=== PATIENT | female | born 1940 | race Caucasian/White ===

== ENCOUNTER 2021-08-05 18:21 | Inpatient (IN) | payer MEDICARE, OTHER ==
[~2021-08-05] VITALS: Ht 152.4 cm; Wt 65.2 kg
[2021-08-05 19:13] LABS: BASOPHILS ABSOLUTE AUTO 0.09 K/mm3 (0.00-0.23); BASOPHILS PERCENT AUTO 1 % (0-2); EOSINOPHILS ABSOLUTE AUTO 0.15 K/mm3 (0.00-0.68); EOSINOPHILS PERCENT AUTO 1 % (0-6); Hematocrit 31.5 % (33.0-51.0); Hemoglobin 10.9 g/dL (11.5-16.0); IMMATURE GRAN PERCENT AUTO 1 % (0-1); LYMPHOCYTES ABSOLUTE AUTO 1.66 K/mm3 (0.84-5.20); LYMPHOCYTES PERCENT AUTO 12 % (21-46); MONOCYTES ABSOLUTE AUTO 0.94 K/mm3 (0.16-1.47); MONOCYTES PERCENT AUTO 7 % (4-13); Mean Corpuscular HGB 31.6 pg (26.0-34.0); Mean Corpuscular HGB Conc 34.6 g/dL (31.5-36.5); Mean Corpuscular Volume 91 fL (80-100); Mean Platelet Volume 10.5 fL (9.1-12.4); NEUTROPHILS ABSOLUTE AUTO 11.37 K/mm3 (1.96-9.15); NEUTROPHILS PERCENT AUTO 80 % (41-73); Platelet Count 326 K/mm3 (150-400); RDW Coefficient Variation 13.9 % (11.7-14.2); RDW Standard Deviation 46.5 fL (35.1-46.3); Red Blood Cell Count 3.45 M/mm3 (3.80-5.20); White Blood Cell Count 14.31 K/mm3 (4.00-11.30)
[2021-08-05 19:43] LABS: Influenza A, PCR NEGATIVE (NEGATIVE); Influenza B, PCR NEGATIVE (NEGATIVE); Resp Syncytial Virus, PCR NEGATIVE (NEGATIVE); SARS-Cov-2 (COVID-19) PCR, MMC NEGATIVE (NEGATIVE)
[2021-08-05 19:55] LABS: Albumin, Blood 2.6 g/dL (3.4-5.0); Albumin/Globulin Ratio 0.6 (0.8-1.8); Bilirubin, Total 0.6 mg/dL (0.1-1.0); Bun/Creatinine Ratio 6.6 (12.0-20.0); Calcium, Blood 8.9 mg/dL (8.5-10.1); Creatinine, Blood 7.93 mg/dL (0.40-1.00); Globulin, Blood 4.1 g/dL (2.2-4.0); Total Protein, Blood 6.7 g/dL (6.4-8.2)
[2021-08-05 20:01] LABS: Magnesium, Blood 1.4 mg/dL (1.6-2.4); Phosphorus, Blood 5.6 mg/dL (2.5-4.9); Troponin I 0.092 ng/mL (0.000-0.040)
[2021-08-05] MEDS ORDERED: XARELTO20 MG PO (21:24)
[2021-08-05 23:23] LABS: Bun/Creatinine Ratio 6.8 (12.0-20.0); Calcium, Blood 8.5 mg/dL (8.5-10.1); Creatinine, Blood 8.23 mg/dL (0.40-1.00)
[2021-08-06 01:17] LABS: Automated BF WBC Count 0.118 K/mm3 (0-999); Body Fluid WBC Count 118 /mm3 (0-999)
--- NOTE | 2021-08-06 01:22 | NUR ---
DIALYSIS-PD DAUGHTER IN THE ROOM WITH PT. THEY ARE NEW TO PD. HAS A FISTULA THAT HASN'T WORKED WELL. USED A PERMACATH WHILE ON HD. CATH WAS DC'ED WHEN STARTED PD. APPROXIMATELY 3 MOS AGO. TOOK SAMPLE PER PROTOCAL FOR CELL CT AND GRAM STAIN. CULTURE IF NEEDED, THE SAMPLE WAS EXTREMELY SMALL AMT, CLEAR LOOKING. THE CIGAR BINDER FELT MAY BE ABLE TO GET RESULTS. PT IS ABSORBING THE LAST FILL BUT THE PD RN (CHRIS) FEELS SHE MAY NEED THE FLUID. SHE USES 1.5% DEXTROSE DIANEAL X 2. DAUGHTER SAYS SHE IS NOT A BIG EATER. WAITING RESULTS OF CELL CT.
[2021-08-06 02:56] LABS: RBC Count, Body Fluid 42 /mm3 (0-0)
--- NOTE | 2021-08-06 03:35 | NUR ---
DIALYSIS-PD REPORTED WBC OF PD FLUID TO DR CASTILLO. HE DECIDED TO WAIT TIL AM WHEN HE MAKE ROUNDS. INFORMED PT' DAUGHTER AND HER NURSE OF PLANS TO WAIT. PT HAS NO PAIN OR DISCOMFORT IN ABD AREA. I PALPATED AROUND HER PD PORT WITH OUT ANY DISCOMFORT. I COULD FEEL A THRILL AT HER FISTULA SITE.
[2021-08-06 03:57] LABS: Appearance, Body Fluid Hazy (Clear); Color, Body Fluid L Yellow (None-Yellow); Total Cell Count, Body Fluid 42
--- NOTE | 2021-08-06 05:21 | NUR ---
SHIFT SUMMARY PT RECEIVED FROM ER, AWAKE AND ALERT TO HERSELF ALONG WITH DAUGHTER. PT WAS ADMITTED FOR HYPOKALEMIA . PT ON ROOM AIR, NO SOB . ABX , POTASSIUM AND AND MAGNESIUM WERE STARTED IN THE ER. PT IS ON PERITONEAL DYALYSIS AT HOME FOR THE PAST THREE MONTHS. RIGHT FISTULA ON RIGHT ARM AND PD CATHETER FOR PERITONEAL DYALYSIS ON ABDOMEN ERE NOTED.DR MENDOZA WAS CONSULTED AND DYALISIS NURSE FROM [facility] CAME TO COLLECT FLUID TO SEND TO LAB.PD WAS ON HOLD FOR LAST NIGHT UNTIL RESULTS ARE BACK.BP WAS ON LOW SIDE ,MD WAS NOTIFIED AND NS BOLUS WAS ORDERED AND GIVEN. PT IS SLEEPING COMFORTABLY AT THIS TIME WITH DAUGHTER AT BEDSIDE. BED IN LOWER POSITION AND CALL LIGHT IN EASY REACH. WILL CONTINUE TO MONITOR UNTIL DAY SHIFT ARRIVES.
[2021-08-06 08:30] LABS: BASOPHILS ABSOLUTE AUTO 0.09 K/mm3 (0.00-0.23); BASOPHILS PERCENT AUTO 1 % (0-2); EOSINOPHILS ABSOLUTE AUTO 0.26 K/mm3 (0.00-0.68); EOSINOPHILS PERCENT AUTO 2 % (0-6); IMMATURE GRAN ABSOLUTE AUTO 0.05 K/mm3 (0.00-0.10); IMMATURE GRAN PERCENT AUTO 0 % (0-1); LYMPHOCYTES ABSOLUTE AUTO 1.56 K/mm3 (0.84-5.20); LYMPHOCYTES PERCENT AUTO 13 % (21-46); MONOCYTES ABSOLUTE AUTO 0.86 K/mm3 (0.16-1.47); MONOCYTES PERCENT AUTO 7 % (4-13); Mean Corpuscular HGB 31.5 pg (26.0-34.0); Mean Corpuscular HGB Conc 34.6 g/dL (31.5-36.5); Mean Corpuscular Volume 91 fL (80-100); Mean Platelet Volume 10.5 fL (9.1-12.4); NEUTROPHILS ABSOLUTE AUTO 9.54 K/mm3 (1.96-9.15); NEUTROPHILS PERCENT AUTO 77 % (41-73); Platelet Count 229 K/mm3 (150-400); RDW Coefficient Variation 13.8 % (11.7-14.2); RDW Standard Deviation 46.3 fL (35.1-46.3); Red Blood Cell Count 2.86 M/mm3 (3.80-5.20); White Blood Cell Count 12.36 K/mm3 (4.00-11.30)
[2021-08-06 08:58] LABS: Albumin, Blood 1.9 g/dL (3.4-5.0); Anion Gap 11 mmol/L (6-16); Blood Urea Nitrogen 57 mg/dL (8-24); Bun/Creatinine Ratio 7.2 (12.0-20.0); CO2, Blood 20 mmol/L (21-32); Calcium, Blood 7.9 mg/dL (8.5-10.1); Chloride, Blood 104 mmol/L (98-108); Creatinine, Blood 7.91 mg/dL (0.40-1.00); Glomerular Filtration Rate 5 (60-); Glucose, Blood 104 mg/dL (70-99); Phosphorus, Blood 4.8 mg/dL (2.5-4.9); Potassium, Blood 3.2 mmol/L (3.5-5.5); Sodium, Blood 135 mmol/L (136-145)
[2021-08-06 11:37] LABS: Troponin I 0.136 ng/mL (0.000-0.040); Vancomycin, Random 12.9 ug/mL
[2021-08-06] MEDS ORDERED: Potassium Chlo20 ME1 PO (16:18)
[2021-08-06] MEDS ORDERED: MIDO5 PO (16:19)
[2021-08-06] MEDS ORDERED: MEGESTROL400 MG/11 PO (16:19)
[2021-08-06] MEDS ORDERED: CLON.5 PO (16:20)
[2021-08-06] MEDS ORDERED: GABA300 PO (16:21)
[2021-08-06] MEDS ORDERED: XARELTO20 MG PO (16:21)
[2021-08-06] MEDS ORDERED: OXYC5 PO (16:22)
[2021-08-06 18:05] LABS: Adenovirus F 40/41 Not Detected (NOT DETECT); Astrovirus Not Detected (NOT DETECT); Campylobacter Sp Not Detected (NOT DETECT); Cryptosporidium Not Detected (NOT DETECT); Cyclospora Cayetanensis Not Detected (NOT DETECT); E. Coli O157 Not Detected (NOT DETECT); Entamoeba Histolytica Not Detected (NOT DETECT); Enteroaggregative E. coli-EAEC Not Detected (NOT DETECT); Enteropathogenic E. coli-EPEC Not Detected (NOT DETECT); Enterotoxigenic E. coli-ETEC Not Detected (NOT DETECT); Giardia Lamblia Not Detected (NOT DETECT); Norovirus GI/GII Not Detected (NOT DETECT); Plesiomonas Shigelloides Not Detected (NOT DETECT); Rotavirus A Not Detected (NOT DETECT); Salmonella Sp Not Detected (NOT DETECT); Sapovirus Not Detected (NOT DETECT); Shiga Toxin-prod E. coli-STEC Not Detected (NOT DETECT); Shigella/Enteroin E. coli-EIEC Not Detected (NOT DETECT); Vibrio Cholerae Not Detected (NOT DETECT); Vibrio Sp Not Detected (NOT DETECT); Yersinia Enterocolitica Not Detected (NOT DETECT)
--- NOTE | 2021-08-06 19:29 | NUR ---
SUMMARY- PT ALERT TO SELF AND PLACE, NOT AWARE OF THE DATE OF SPECIFICS. DEPENDANT IN CARE, ROUTINE TURNS. ANURIC, HAD ONE SMALL LOOSE BM AND SPECIMEN SENT. LAB CALLED AND STATES AMOUNT INSUFFICIENT, BUT RESULTS CAME BACK NEGATIVE ALL IN GI PANAL. BARRIER CREAM TO RED HERRERA. NO APPETITE, ENCOURAGED PO INTAKE. TOOK IN BITES OF RENAL DIET AND SIPS OF FLUIDS. HAD ONE LITER OF NS THROUGH THE DAY. POTASSIUM REPLACEMENT IV. LABS SCHEDULED FOR AM. ALESHIA BLAKE HERE 1800 TO CONNECT PT TO PERITINEAL DIALYSIS THROUGH THE NIGHT. PLAN FOR ECHO. NOT PERFORMED YET. REPORTED ALL TO NOC RN.
--- NOTE | 2021-08-06 19:43 | NUR ---
DIALYSIS-PD PT'S DAUGHTER WANTED TO TRY TO HOOK HER UP TO PD. SHE HAD BEEN TRAINED AT THE CLINIC BUT THE FATHER ALWAYS DID IT. THE FAMILY HAD BROUGHT HER MACHINE WITH THEM WHEN SHE GOT ADMITTED. ALONG SOME SUPPLIES. SHE FEELS THAT SHE NEEDS TO BE PREPARED TO THE PD IF THE FATHER BECOMES ILL OR UNABLE. SO I STOOD BACK AND INSTRUCTED WHILE SHE DID IT. THE PT WAS CONNECTED TO [place] PER PROTOCAL. SHE IS ON 2 1.5% DIANEAL 6 L BAGS. 63416 ML TOTAL. 2000 DWELL, 1000ML LAST FILL. ONE HOUR 33 MIN DWELL TIME. 5 EXCHANGES.
--- NOTE | 2021-08-07 04:27 | NUR ---
SHIFT SUMMARY NO ACUTE EVENTS OVERNIGHT. PT RECEIVED PERITONEAL DIALYSIS . PT TOLERATED WELL. PT SLEPT THROUH THE NIGHT,DAUTHER AT BEDSIDE.VSS STABLE.NO COMPLAINTS OF PAIN OR SOB.ALL MEDS WERE GIVEN PER EMAR. BED IN LOWER POSITION,CALL LIGHT IN REACH. WILL CONTINUE TO MONITOR.
[2021-08-07 05:40] LABS: BASOPHILS ABSOLUTE AUTO 0.06 K/mm3 (0.00-0.23); BASOPHILS PERCENT AUTO 1 % (0-2); EOSINOPHILS ABSOLUTE AUTO 0.52 K/mm3 (0.00-0.68); EOSINOPHILS PERCENT AUTO 5 % (0-6); Hematocrit 26.6 % (33.0-51.0); IMMATURE GRAN ABSOLUTE AUTO 0.04 K/mm3 (0.00-0.10); IMMATURE GRAN PERCENT AUTO 0 % (0-1); LYMPHOCYTES ABSOLUTE AUTO 1.66 K/mm3 (0.84-5.20); LYMPHOCYTES PERCENT AUTO 17 % (21-46); MONOCYTES ABSOLUTE AUTO 0.72 K/mm3 (0.16-1.47); MONOCYTES PERCENT AUTO 8 % (4-13); Mean Corpuscular HGB 31.7 pg (26.0-34.0); Mean Corpuscular HGB Conc 33.8 g/dL (31.5-36.5); Mean Corpuscular Volume 94 fL (80-100); Mean Platelet Volume 10.8 fL (9.1-12.4); NEUTROPHILS ABSOLUTE AUTO 6.57 K/mm3 (1.96-9.15); NEUTROPHILS PERCENT AUTO 69 % (41-73); Platelet Count 258 K/mm3 (150-400); RDW Coefficient Variation 13.9 % (11.7-14.2); RDW Standard Deviation 47.9 fL (35.1-46.3); Red Blood Cell Count 2.84 M/mm3 (3.80-5.20); White Blood Cell Count 9.57 K/mm3 (4.00-11.30)
[2021-08-07 06:51] LABS: Anion Gap 13 mmol/L (6-16); Blood Urea Nitrogen 50 mg/dL (8-24); Bun/Creatinine Ratio 6.8 (12.0-20.0); CO2, Blood 22 mmol/L (21-32); Calcium, Blood 8.6 mg/dL (8.5-10.1); Chloride, Blood 102 mmol/L (98-108); Creatinine, Blood 7.32 mg/dL (0.40-1.00); Glomerular Filtration Rate 5 (60-); Glucose, Blood 119 mg/dL (70-99); Magnesium, Blood 2.1 mg/dL (1.6-2.4); Phosphorus, Blood 3.8 mg/dL (2.5-4.9); Potassium, Blood 3.2 mmol/L (3.5-5.5); Sodium, Blood 137 mmol/L (136-145)
--- NOTE | 2021-08-07 07:42 | NUR ---
PATIENT RESTING COMFORTABLY IN BED. DAUGHTER ( NELLIE ) AT BEDSIDE T/O NIGHT. OVERNIGHT CCPD COMPLETE. PT AESEPTICALLY DISCONNECTED AND CAPPED. CYCLER STRIPPED AND CLEANED. DR CASTILLO CONSULTED VIA PHONE FOR NEW ORDERS/ PLAN OF CARE.
--- NOTE | 2021-08-07 14:57 | NUR ---
TOOK VS. PT STATES IN FRONT OF DAUGHTER THAT KNOWS IF WET OR SOILED. STATES IS CLEAN AND DRY. VERIFIED WITH DAUGHTER PRESENT. AFFIRMED AGAIN WITH ME IS DRY. TURNED PT WITH SOME PILLOW ASST. VISITED FOR MIN ABOUT HER FAMILY. DAUGHTER AT BEDSIDE. BED INLOW POSITION, CALL LITE IN REACH. CALLS APPROP
--- NOTE | 2021-08-07 18:14 | NUR ---
PATIENT AWAKE / ALERT / IN BED EATING DINNER WITH ASSIST OF DAUGHTER. CYCLER STRUNG, PRIMED AND PROGRAMMED PER RX. PATIENT CONNECTED AND TREATMENT STARTED WHEN PRIME COMPLETED. EXIT SITE CARE DONE. NEW STERILE DRESSING APPLIED. MED FLOOR STAFF AWARE OF OVERNIGHT THERAPY IN PROGRESS.
--- NOTE | 2021-08-07 18:17 | NUR ---
SUMMARY- PT ALERT AND ORIENTED TO PLACE AND FAMILY INTERACTIVE WITH STAFF AND APPROPRIATE. DEPENDANT IN CARE, ROUTINE TURNS. FAMILY IN ROOM AT ALL TIMES, ASSIST WITH MEALS. PT DECREASED APPETITE BUT TOLERATING QS FLUIDS. HAD ONE LOOSE SMALL BM, ANURIC. SETTING UP FOR P. DIALYSIS OVERNIGHT. PLANNING FOR SNF AFTER THE WEEKEND. SAT UP AT EDGE OF BED WITH PT TODAY, STOOD AT EDGE OF BED FOR A SHORT TIME. TIRES EASILY. NOT MOTIVATED. FAMILY THINKS SHE WOULD DO BETTER IN A SNF THAN GOING HOME BECAUSE SHE REFUSES TO GET OOB WHEN AT HOME. WILL REOPRT TO ABDULAZIZ RN.
--- NOTE | 2021-08-07 18:19 | NUR ---
ECHOCARDIOGRAM COMPLETE
--- NOTE | 2021-08-08 04:34 | NUR ---
SHIFT SUMMARY NO NOTABLE EVENTS OVERNIGHT. PT SEEMS MORE AWAKE. PT IS AWAKE AND ALERT TO SELF. PT IS COOPERATIVE WITH CARE. VSS STABLE. PD STARTED LAST NIGHT AND WENT THROUGH WITHOUT INCIDENCE OR CONCERN. ALL MEDS WERE GIVEN PER EMAR.PT IS RESTING COMFORTABLY ON BED, DAGHTER AT BEDSIDE. BED IN LOWER POSITION AND CALL LIGHT IN REACH. WILL CONTINUE TO MONITOR.
--- NOTE | 2021-08-08 07:01 | NUR ---
PATIENT RESTING COMFORTABLY. WAKENS EASILY. DAUGHTER AT BEDSIDE. OVERNIGHT CCPD COMPLETE. PATIENT AESEPTICALLY DISCONNECTED AND CAPPED. CYCLER STRIPPED AND CLEANED. DR CASTILLO CONSULTED VIA PHONE FOR ORDERS / PLAN OF CARE.
--- NOTE | 2021-08-08 16:22 | NUR ---
SUMMARY- PT VERY SLEEPY FOR THE PAST 2 DAYS. FAMILY CONCERNED THAT MEDS ARE CAUSING PT TO BE SLEEPY AND HS NEURONTIN AND OXYCODONE DC'D. PT HAS NO APPETITE AND TOLERATING ONLY BITES OF SOLID FOOD, BUT SUFF QUANTITY OF FLUIDS. REMAINS ANURIC. PLAN FOR PER. DIALYSIS TONIGHT. PT DECLINED BED BATH TODAY. DAUGHTER IS AT BEDSIDE 27/02 INVOLVED IN ALL DECISIONS. ORAL POTASSIUM REPLACEMENT TODAY.
--- NOTE | 2021-08-08 19:10 | NUR ---
TO ROOM 344. PT AWAKE, DAUGHTER AT BEDSIDE. DAUGHTER WILL CONNECT DIALYSIS. SITE WNL. REPORT TO ABDULAZIZ WHITEHEAD. WAGNER
--- NOTE | 2021-08-08 21:15 | NUR ---
CALLED BY PT'S DAUGHTER DUE TO MACHINE ERROR SYSTEM ERROR 2239. UNABLE TO TROUBLE SHOOT OVER PHONE. PIERCE CALLED AND INSTRUCTED US TO USE ALL NEW BAGS AND TUBING THEY STATED SYSTEM HAD BEEN CONTAMINATED. NEW BAGS AND TUBING BROUGHT TO ROOM AND TX INITIATED. PT SLEEPING THROUGHOUT PROCESS. TX INITATED WITHOUT DIFFICULTY. PT TOLERATED WELL. WAGNER
--- NOTE | 2021-08-09 03:36 | NUR ---
PATIENT HAS HAD AN UNEVENTFUL NIGHT; RECIEVING PERITONEAL DIALYSIS WITHOUT COMPLICATION. VITALS REMAIN STABLE. DAUGHTER HAS REMAINED AT BEDSIDE AND ASSISTS PATIENT WITH NEEDS. NO ACUTE CHANGES TO REPORT OF AT THIS TIME. CALL LIGHT WITHIN REACH.
[2021-08-09] MEDS ORDERED: GABA300 PO (03:47)
[2021-08-09 05:25] LABS: Hematocrit 25.2 % (33.0-51.0); Hemoglobin 8.4 g/dL (11.5-16.0)
[2021-08-09 06:00] LABS: Magnesium, Blood 1.6 mg/dL (1.6-2.4)
[2021-08-09 06:01] LABS: Albumin, Blood 1.8 g/dL (3.4-5.0); Anion Gap 11 mmol/L (6-16); Blood Urea Nitrogen 47 mg/dL (8-24); Bun/Creatinine Ratio 6.8 (12.0-20.0); CO2, Blood 22 mmol/L (21-32); Calcium, Blood 8.4 mg/dL (8.5-10.1); Chloride, Blood 100 mmol/L (98-108); Creatinine, Blood 6.94 mg/dL (0.40-1.00); Glomerular Filtration Rate 6 (60-); Glucose, Blood 120 mg/dL (70-99); Potassium, Blood 3.1 mmol/L (3.5-5.5); Sodium, Blood 133 mmol/L (136-145)
--- NOTE | 2021-08-09 08:00 | NUR ---
PT PLEASANT COOP. A/O DENIES PAIN. H/R REG, NO MURMER NOTED. NO TELE. LUNGS CLEAR, RESP EASY, UNLABORED. ON R/A. BT X4 LAST BM YEST PER PT. IS INCONT BOWEL. CLEAN AND DRY AT THIS TIME. STATES BARELY URINATES, ON P/DIALYSIS. CHARO FROM DIALYSIS SETS AND D/C'S. DAUGHTER NELLIE IN ROOM. BOTH QUITE PLEASANT. BED IN LOW POSITION, CALL LITE IN REACH, CALLS APROP
--- NOTE | 2021-08-09 08:37 | NUR ---
PATIENT IN BED, AWAKE, ALERT. DAUGHTER AT BEDSIDE. OVERNIGHT THERAPY COMPLETE. PATIENT AESEPTICALLY DISCONNECTED AND CAPPED. CYCLER STRIPPED AND CLEANED. DR CASTILLO CONSULTED VIA PHONE FOR ORDERS/ PLAN OF CARE.
--- NOTE | 2021-08-09 16:34 | NUR ---
PT QUITE PLEASANT COOP TODAY. DID GET UP WITH PT TO STAND AND LIGHT SIDE STEPS. PT STATES QUITE FEARFUL TO FALL. DAUGHTER AT BEDSIDE MOST OF DAY. DID HAVE CONCERNS NOTED FOR PT BEING ON ABX. DISCUSSED WITH AND THIS STOPPED. NO NEW CONCERNS NOTED. BED IN LOW POSITION, CALL LITE IN REACH, CALLS APPROP
--- NOTE | 2021-08-09 18:53 | NUR ---
DIALYSIS-PD PT CONNECTED TO PD PER PROTOCAL. A&O. LOOKS ALOT BETTER. EATING DINNER. DAUGHTER WITH HER. DRESSING CHANGED, SITE CLEAR. CONTINUED WITH 1.5% DEXTROSE DIANEAL BAGS.
--- NOTE | 2021-08-10 03:03 | NUR ---
PATIENT HAS HAD AN UNEVENTFUL NIGHT AND HAS BEEN SLEEPING WELL. VITALS STABLE. DAUGHTER REMAINS AT BEDSID ATC. NO ACUTE ISSUES TO REPORT OF AT THIS TIME. CALL LIGHT WITHIN REACH.
[2021-08-10 07:28] LABS: Hematocrit 24.4 % (33.0-51.0); Hemoglobin 8.3 g/dL (11.5-16.0)
--- NOTE | 2021-08-10 07:45 | NUR ---
PATIENT AWAKE / ALERT / COMFORTABLE IN BED. DAUGHTER AT BEDSIDE. AM LABS DRAWN. PT DISCONNECTED AND CAPPED. CYCLER STRIPPED AND CLEANED. DR CASTILLO CONSULTED VIA PHONE FOR ORDERS / PLAN OF CARE.
[2021-08-10 07:59] LABS: Albumin, Blood 1.9 g/dL (3.4-5.0); Anion Gap 11 mmol/L (6-16); Blood Urea Nitrogen 40 mg/dL (8-24); Bun/Creatinine Ratio 6.2 (12.0-20.0); CO2, Blood 23 mmol/L (21-32); Calcium, Blood 8.4 mg/dL (8.5-10.1); Chloride, Blood 101 mmol/L (98-108); Creatinine, Blood 6.45 mg/dL (0.40-1.00); Glomerular Filtration Rate 6 (60-); Glucose, Blood 102 mg/dL (70-99); Magnesium, Blood 1.7 mg/dL (1.6-2.4); Phosphorus, Blood 3.8 mg/dL (2.5-4.9); Potassium, Blood 3.2 mmol/L (3.5-5.5); Sodium, Blood 135 mmol/L (136-145)
--- NOTE | 2021-08-10 18:16 | NUR ---
DIALYSIS-PD PD CONNECTED TO PT AT 1745 PER PROTOVAL. DRESSING CHANGE. AREA PER PROTOCAL. SITE CLEAR. WENT THROUGH ID WITHOUT ALARMS. DINNER CAME AND SETUP IN BED TO EAT. NO CHANGES IN PROGRAM.
--- NOTE | 2021-08-10 18:37 | NUR ---
SHIFT SUMMARY DAUGHTER AT BEDSIDE THROUGHOUT SHIFT. PROVIDED ENCOURAGEMENT TO PT AND ASSISTED WITH SETTING MEAL TRAY UP AND MONITERING ORAL INTAKE. PT UP IN CHAIR FOR APPROX 1 HOUR THIS MORNING AND TOLERATED WELL. PERITONEAL DIALYIS STARTED THIS EVENING.
--- NOTE | 2021-08-11 04:29 | NUR ---
ROD HANGER SUMMARY ADMITTED FOR ACUTE CORONARY SYNDROME - RESOLVED. PT IS A FULL CODE. PT IS A DIALYSIS PT AND PLAN IS TO DC HOME ON HOME HEALTH. PT HAD AN EPISODE OF SYNCOPE WHILE ON THE COMMODE AT THE START OF SHIFT - SEE CONFIGURATION MANAGEMENT ADMINISTRATOR NOTE. PT HAS SINCE IMPROVED AND BEEN SLEEPING THROUGHOUT THE NIGHT. SHE DID HAVE RESTLESS LEGS AND WAS MEDICATED PER OCT. PT HAD PERITONEAL DIALYSIS THROUGHOUT THE SHIFT AND HAD A BP OF 95/34 THIS AM - PT IS ASYMPTOMATIC AND IS CURRENTLY RESTING. WILL CONTINUE TO MONITOR. PT IS ALERT AND ORIENTED TO SELF, SITUATION, AND FAMILY. SHE IS PLEASANT AND COOPERATIVE WITH CARE. NO OTHER CONCERNS THIS SHIFT.
--- NOTE | 2021-08-11 08:18 | NUR ---
TO ROOM 344 TO DISCONNECT PT. DISCONNECTED PER PROTOCOL. PT TOLERATED WELL. DAUGHTER AT BEDSIDE. PT EATING BREAKFAST. SITE WNL. EDWARD
[2021-08-11 08:31] LABS: Hematocrit 23.3 % (33.0-51.0); Hemoglobin 7.7 g/dL (11.5-16.0)
[2021-08-11 08:57] LABS: Albumin, Blood 1.8 g/dL (3.4-5.0); Anion Gap 10 mmol/L (6-16); Blood Urea Nitrogen 40 mg/dL (8-24); Bun/Creatinine Ratio 6.1 (12.0-20.0); CO2, Blood 24 mmol/L (21-32); Calcium, Blood 8.5 mg/dL (8.5-10.1); Chloride, Blood 100 mmol/L (98-108); Creatinine, Blood 6.59 mg/dL (0.40-1.00); Glomerular Filtration Rate 6 (60-); Glucose, Blood 101 mg/dL (70-99); Magnesium, Blood 1.8 mg/dL (1.6-2.4); Phosphorus, Blood 4.2 mg/dL (2.5-4.9); Potassium, Blood 3.3 mmol/L (3.5-5.5); Sodium, Blood 134 mmol/L (136-145)
--- NOTE | 2021-08-11 15:30 | NUR ---
DISCHARGE INSTRUCTIONS COMPLETED AND DISCUSSED WITH PT EXPRESSING UNDERSTANDING. DAUGHTER REQUESTING A SCRIPT FOR XARELTO AND WAS OBTAINED AND GIVEN. TO CURB VIA W/C.
== END 2021-08-11 15:18 | disposition home health service (06) | DRG 640 ==
LOC: ER 18:21 → ERHOLD 20:46 → ER 20:46 → ERHOLD 20:49 → MEDS 20:49 → ERHOLD 20:49 → MEDS 22:45
PROVIDERS: Emergency Medicine; Family Medicine; Internal Medicine Nephrology; Student in an Organized Health Care Education/Training Program; ADMIT Internal Medicine
PROC: 3E1M39Z Irrigation of Peritoneal Cavity using Dialysate, Percutaneous Approach (ICD-10-PCS; principal; 2021-08-06)
DX: E87.6 Hypokalemia (principal); N18.6 End stage renal disease; I21.A1 Myocardial infarction type 2; N25.81 Secondary hyperparathyroidism of renal origin; Z20.822 Contact with and (suspected) exposure to COVID-19; K52.9 Noninfective gastroenteritis and colitis, unspecified; E87.1 Hypo-osmolality and hyponatremia; D72.829 Elevated white blood cell count, unspecified; I95.9 Hypotension, unspecified; Z99.2 Dependence on renal dialysis; E83.42 Hypomagnesemia; E88.09 Other disorders of plasma-protein metabolism, not elsewhere classified; D63.1 Anemia in chronic kidney disease; M10.9 Gout, unspecified; I48.0 Paroxysmal atrial fibrillation; K21.9 Gastro-esophageal reflux disease without esophagitis; G62.9 Polyneuropathy, unspecified; I34.2 Nonrheumatic mitral (valve) stenosis; D46.9 Myelodysplastic syndrome, unspecified; Z90.710 Acquired absence of both cervix and uterus; Z90.49 Acquired absence of other specified parts of digestive tract; Z79.01 Long term (current) use of anticoagulants; Z98.890 Other specified postprocedural states; Z88.1 Allergy status to other antibiotic agents; Z88.5 Allergy status to narcotic agent; Z88.8 Allergy status to other drugs, medicaments and biological substances; Z88.2 Allergy status to sulfonamides; Z79.899 Other long term (current) drug therapy
CPT/HCPCS: 0097U; 0241U; 36415; 70450; 71045; 80048; 80053; 80069; 80202; 83735; 84100; 84132; 84145; 84484; 85014; 85018; 85025; 87070; 87075; 87205; 89051; 93005; 93010; 93306; 94760; 96374; 96375; 97110; 97110-CQ; 97116; 97116-CQ; 97161; 97530; 97530-CQ; 99285-25; A9270; G0378; J0692; J0696; J0881; J3370; J3475; J3480; J7030; J7040; J7050